=== PATIENT | female | born 1955 | race Caucasian/White ===

== ENCOUNTER 2022-06-15 13:24 | Emergency (ER) | payer MEDICARE ==
[2022-06-15] MEDS ORDERED: BABY ASPIRIN 81 MG CHEW PO ONE (13:31)
[2022-06-15] MEDS ORDERED: Zofran 4 MG/2 ML VIAL IV ONE (13:31)
[2022-06-15] MEDS ORDERED: MORPHINE SULFATE 2 MG INJ IV ONE (13:31)
--- NOTE | 2022-06-15 13:31 | ERPHSYRPT ---
- History of Present Illness Time Seen by Provider: 06/15/22 13:31 Historian: patient, family Exam Limitations: no limitations Physician History: This is a 67-year-old obese white female is never been seen/evaluated in our emergency department in the past and presents with right-sided chest pain that is sharp and nonradiating per her report. Patient's provided us with additional history which the patient confirms that her first episode of pain started Friday after ingesting a sandwich. Each day thereafter her symptoms seem to worsen after eating and therefore in the last couple of days she has not been eating as much. She has been taking in some oral liquids. However, this morning the pain became more severe and was no longer intermittent but constant sharp pain on the right side. She was also nauseated but did not have any vomiting. She still has her gallbladder in place. She has never been diagnosed with any coronary artery disease. She is not on any anticoagulation therapy. She states that she is a little short of breath because there is pain when she takes a deep breath. She has not had a fever. She has not had a cough. She has not had any diarrhea. Patient is relatively new to the area having moved here 6 to 8 months ago from [place] and has not been seen by a local physician. However, she has an appointment to see Dr. Merchant on 06/17/2022 for her initial appointment. Patient has a history of hypertension and hyperch olesterolemia. Timing/Duration: day(s) (4) Activities at Onset: none Quality: burning, sharpness Location: other (Right lower chest and right upper quadrant) Severity of Pain-Max: moderate Severity of Pain-Current: moderate Modifying Factors: Improves With: nothing Associated Symptoms: abdominal pain (Right upper quadrant), shortness of breath (With a deep breath), hurts to breathe Prior Chest Pain/Cardiac Workup: no prior chest pain, no prior cardiac workup Nitro Today/Relief: no nitro taken today Aspirin Treatment Today: no aspirin today Allergies/Adverse Reactions: No Known Drug Allergies Allergy (Unverified 06/15/22 13:26) Travel Risk - International Travel Have you traveled outside of the country in past 3 weeks: No - Coronavirus Screening Are you exhibiting any of the following symptoms?: No Close contact with a COVID-19 positive Pt in past 14-21 Days: No - Review of Systems Constitutional: No Symptoms Eyes: No Symptoms Ears, Nose, & Throat: No Symptoms Respiratory: No Symptoms Cardiac: No Symptoms Abdominal/Gastrointestinal: Abdominal Pain, Appetite Changes, No Nausea, No Vomi ting, No Diarrhea Genitourinary Symptoms: No Symptoms Musculoskeletal: No Symptoms Skin: No Symptoms Neurological: No Symptoms Psychological: No Symptoms Endocrine: No Symptoms Hematologic/Lymphatic: No Symptoms Immunological/Allergic: No Symptoms All Other Systems: Reviewed and Negative - Past Medical History Pertinent Past Medical History: Yes - Past Surgical History Past Surgical History: Yes - Nursing Vital Signs Nursing Vital Signs: Initial Vital Signs Temperature 96.3 F 06/15/22 13:27 Pulse Rate 106 H 06/15/22 13:27 Respiratory Rate 20 06/15/22 13:27 Blood Pressure 119/60 06/15/22 13:27 Pain Scale Pain Intensity 0 - Physical Exam General Appearance: mild distress, alert, anxiety, obese Eye Exam: PERRL/EOMI, eyes nml inspection Ears, Nose, Throat Exam: normal ENT inspection, moist mucous membranes Neck Exam: normal inspection, non-tender, supple, full range of motion Respiratory Exam: normal breath sounds, lungs clear, airway intact, No chest tenderness, No respiratory distress Cardiovascular Exam: normal heart sounds, normal peripheral pulses, tachycardia Gastrointestinal/Abdomen Exam: soft, normal bowel sounds, tenderness, guarding (Right upper quadrant to palpation) Pelvic Exam: not done Rectal Exam: not done Back Exam: normal inspection, normal range of motion, No CVA tenderness, No vertebral tenderness Extremity Exam: normal inspection, normal range of motion, pelvis stable Neurologic Exam: alert, oriented x 3, cooperative, head of human resources II-XII nml as tested, normal mood/affect, nml cerebellar function, nml station & gait, sensation nml Skin Exam: normal color, warm, dry Lymphatic Exam: No adenopathy SpO2 Interpretation: normal SpO2: 99 O2 Delivery: Room Air - Course Nursing assessment & vital signs reviewed: Yes EKG Interpreted by Me: RATE (103), Sinus Tach, NORMAL AXIS, Right Bundle Branch Block, Other (Borderline prolonged NH interval. Difficult to assess this twelve-lead EKG since the patient is very anxious shaking and nervous. I am not necessarily appreciating an acute ischemic issue at this time. No prior twelve- lead EKGs available. We will provide our work-up and repeat twelve-lead EKG.) Ordered Tests: Active Orders 24 hr Category Date Time Status EKG-ER Only STAT Care 06/15/22 13:31 Completed Quintero [Catheter-Kincaid Quintero] STAT Care 06/15/22 14:41 Completed IV Insertion STAT Care 06/15/22 13:31 Completed Pulse Oximetry (ED) STAT Care 06/15/22 13:31 Completed ABDOMEN AND PELVIS W/0 CONTRAS [CT] Stat Exams 06/15/22 13:46 Completed CHEST 1 VIEW (PORTABLE) Stat Exams 06/15/22 13:31 Completed ABG [ARTERIAL BLOOD GASES] Stat Lab 06/15/22 14:20 Completed ABG [ARTERIAL BLOOD GASES] Stat Lab 06/15/22 16:33 Completed AMYLASE Stat Lab 06/15/22 13:40 Completed BMP Stat Lab 06/15/22 17:03 Completed CBC W DIFF Stat Lab 06/15/22 13:40 Completed CMP Stat Lab 06/15/22 13:40 Completed CULTURE,URINE Stat Lab 06/15/22 15:12 Received D-DIMER QUANTITATIVE Stat Lab 06/15/22 13:40 Completed LIPASE Stat Lab 06/15/22 13:40 Completed Lactic Acid Stat Lab 06/15/22 14:20 Completed NT PRO BNPII Stat Lab 06/15/22 13:40 Completed PROTIME WITH INR Stat Lab 06/15/22 13:40 Completed TROPONIN Q4H Lab 06/15/22 13:40 Completed TROPONIN Q4H Lab 06/15/22 17:03 Completed UA W/RFX UR CULTURE Stat Lab 06/15/22 15:12 Completed Medication Summary Discontinued Medications Generic Name Dose Route Start Last Admin Trade Name Freq PRN Reason Stop Dose Admin Aspirin 324 mg 06/15/22 13:31 06/15/22 13:35 Aspirin 81 Mg Tab.Chew PO 06/15/22 13:32 324 mg STAT ONE Administration Aspirin Confirm 06/15/22 13:34 Aspirin 81 Mg Tab.Chew Administered 06/15/22 13:35 Dose 324 mg .ROUTE .STK-MED ONE Enoxaparin Sodium 90 mg 06/15/22 14:31 06/15/22 14:39 Enoxaparin Sodium 120 Mg/0.8 Ml Syringe SQ 06/15/22 14:32 90 mg STAT STA Administration Enoxaparin Sodium Confirm 06/15/22 14:38 Enoxaparin Sodium 120 Mg/0.8 Ml Syringe Administered 06/15/22 14:39 Dose 120 mg SQ .STK-MED ONE Sodium Chloride 1,000 mls @ 100 mls/hr 06/15/22 13:45 06/15/22 13:48 Sodium Chloride 0.9% 1000 Ml IV 07/15/22 13:44 100 mls/hr .Q10H CHRISS Administration Meropenem 1 gm/ Sodium 100 mls @ 200 mls/hr 06/15/22 14:42 06/15/22 15:00 Chloride IV 06/15/22 15:11 200 mls/hr STAT ONE Administration Sodium Chloride Confirm 06/15/22 14:58 Sodium Chloride 100ml Mini-Bag Plus Administered 06/15/22 14:59 Dose 100 mls @ ud IV .STK-MED ONE Sodium Chloride 1,000 mls @ 250 mls/hr 06/15/22 15:45 06/15/22 19:56 Sodium Chloride 0.9% 1000 Ml IV 07/15/22 15:44 100 mls/hr .Q4H CHRISS Administration Norepinephrine/Dextrose Confirm 06/15/22 17:15 Norepinephrine 8 Mg/250 Ml-D5w Administered 06/15/22 17:16 Dose 8 mg in 250 mls @ ud IV .STK-MED ONE Sodium Bicarbonate 100 meq/ 1,100 mls @ 50 mls/hr 06/15/22 17:30 06/15/22 18:15 Dextrose IV 07/15/22 17:29 50 ml/hr .Q22H CHRISS 50 mls/hr Administration Norepinephrine/Dextrose 8 mg in 250 mls @ 15 mls/hr 06/15/22 17:29 06/15/22 20:03 Norepinephrine 8 Mg/250 Ml-D5w IV 07/15/22 17:28 8 mcg/min .[id number] PRN 15 mls/hr HYPOTENSION Titration Protocol 8 MCG/MIN Dextrose Confirm 06/15/22 17:45 Dextrose 5%/Water Iv Soln. 1000 Ml Administered 06/15/22 17:46 Dose 1,000 mls @ ud IV .STK-MED ONE Meropenem Confirm 06/15/22 14:58 Meropenem 1 Gm Vial Administered 06/15/22 14:59 Dose 1 gm IV .STK-MED ONE Morphine Sulfate 2 mg 06/15/22 13:31 06/15/22 13:36 Morphine Sulfate 2 Mg/Ml Inj IV 06/15/22 13:32 2 mg STAT ONE Administration Morphine Sulfate Confirm 06/15/22 13:34 Morphine Sulfate 2 Mg/Ml Inj Administered 06/15/22 13:35 Dose 2 mg .ROUTE .STK-MED ONE Ondansetron HCl 4 mg 06/15/22 13:31 06/15/22 13:35 Ondansetron Hcl 4 Mg/2 Ml Vial IV 06/15/22 13:32 4 mg STAT ONE Administration Ondansetron HCl Confirm 06/15/22 13:34 Ondansetron Hcl 4 Mg/2 Ml Vial Administered 06/15/22 13:35 Dose 4 mg .ROUTE .STK-MED ONE Sodium Bicarbonate 50 meq 06/15/22 15:23 06/15/22 15:37 Sodium Bicarbonate 1 Meq/Ml 50ml Syringe IV 06/15/22 15:24 50 meq STAT ONE Administration Sodium Bicarbonate Confirm 06/15/22 15:35 Sodium Bicarbonate 1 Meq/Ml 50ml Syringe Administered 06/15/22 15:36 Dose 50 meq IV .STK-MED ONE Sodium Bicarbonate Confirm 06/15/22 17:45 Sodium Bicarbonate 1 Meq/Ml 50ml Syringe Administered 06/15/22 17:46 Dose 100 meq IV .STK-MED ONE Lab/Rad Data: Laboratory Result Diagrams 06/15/22 13:40 06/15/22 17:03 Laboratory Results 06/15/22 06/15/22 06/15/22 Range/Units 17:03 17:03 17:00 WBC (4.0-10.5) x10^3/uL RBC (4.1-5.4) x10^6/uL Hgb (12.0-16.0) g/dL Hct (35-47) % MCV (78-100) fL MCH (26-32) pg MCHC (32-36) g/dL RDW (11.5-14.0) % Plt Count (150-450) x10^3/uL MPV (7.5-11.0) fL Gran % (36.0-66.0) % Immature Gran % (Auto) (0.00-0.4) % Nucleat RBC Rel Count (0.00-0.1) % Eos # (Auto) (0-0.5) x10^3/uL Immature Gran # (Auto) (0.00-0.03) x10^3u/L Absolute Lymphs (auto) (1.0-4.6) x10^3/uL Absolute Monos (auto) (0.0-1.3) x10^3/uL Absolute Nucleated RBC (0.00-0.01) x10^3u/L Lymphocytes % (24.0-44.0) % Monocytes % (0.0-12.0) % Eosinophils % (0.00-5.0) % Basophils % (0.0-0.4) % Absolute Granulocytes (1.4-6.9) x10^3/uL Basophils # (0-0.4) x10^3/uL PT (9.4-12.5) SECONDS INR (0.8-3.0) D-Dimer (0.0-0.50) mg/L Puncture Site pCO2 (35-45) mmHg pO2 (75-100) mmHg Base Excess (-2.0-2.0) O2 Saturation (94-100) g/dF ABG pH (7.35-7.45) ABG HCO3 (22-28) ABG O2 Sat (Measured) (95-100) % Candido Test A-a Gradient a/A Ratio Hemoglobin Carboxyhemoglobin (0.0-6.9) % THgb Methemoglobin (1.4-1.5) % Temperature C POC O2 Flow Rate % Sodium 137 (137-145) mmol/L Potassium 3.8 (3.5-5.1) mmol/L Chloride 100 (98-107) mmol/L Carbon Dioxide 13 L* (22-30) mmol/L Anion Gap 27.8 H (5-15) MEQ/L BUN 87 H (7-17) mg/dL Creatinine 10.33 H (0.52-1.04) mg/dL Estimated GFR 3.9 ML/MIN Glucose 127 H (74-106) mg/dL Lactic Acid (0.4-2.0) Calcium 8.4 (8.4-10.2) mg/dL Total Bilirubin (0.2-1.3) mg/dL AST (14-36) U/L ALT (0-35) U/L Alkaline Phosphatase (38-126) U/L Troponin I 0.070 H* (0.000-0.034) ng/mL NT-Pro-B Natriuret Pep (<300) pg/mL Serum Total Protein (6.3-8.2) g/dL Albumin (3.5-5.0) g/dL Amylase (30-110) U/L Lipase (23-300) U/L Urine Color (Yellow) Urine Appearance (Clear) Urine pH (4.6-8.0) Ur Specific Mutual (1.005-1.030) Urine Protein (Negative) Urine Glucose (UA) (Negative) mg/dL Urine Ketones (Negative) Urine Blood (Negative) Urine Nitrite (Negative) Urine Bilirubin (Negative) Urine Urobilinogen (0.2) mg/dL Ur Leukocyte Esterase (Negative) U Hyaline Cast (Auto) (0-2) /LPF Urine Microscopic RBC (0-5) /HPF Urine Microscopic WBC (0-5) /HPF Ur Epithelial Cells (None Seen) /HPF Urine Bacteria (None Seen) /HPF Urine Culture Reflexed (NO) Influenza Type A Ag NEGATIVE (NEGATIVE) Influenza Type B Ag NEGATIVE (NEGATIVE) RSV (PCR) NEGATIVE (Negative) SARS-CoV-2 (PCR) NEGATIVE (NEGATIVE) 06/15/22 06/15/22 06/15/22 Range/Units 16:33 15:12 14:20 WBC (4.0-10.5) x10^3/uL RBC (4.1-5.4) x10^6/uL Hgb (12.0-16.0) g/dL Hct (35-47) % MCV (78-100) fL MCH (26-32) pg MCHC (32-36) g/dL RDW (11.5-14.0) % Plt Count (150-450) x10^3/uL MPV (7.5-11.0) fL Gran % (36.0-66.0) % Immature Gran % (Auto) (0.00-0.4) % Nucleat RBC Rel Count (0.00-0.1) % Eos # (Auto) (0-0.5) x10^3/uL Immature Gran # (Auto) (0.00-0.03) x10^3u/L Absolute Lymphs (auto) (1.0-4.6) x10^3/uL Absolute Monos (auto) (0.0-1.3) x10^3/uL Absolute Nucleated RBC (0.00-0.01) x10^3u/L Lymphocytes % (24.0-44.0) % Monocytes % (0.0-12.0) % Eosinophils % (0.00-5.0) % Basophils % (0.0-0.4) % Absolute Granulocytes (1.4-6.9) x10^3/uL Basophils # (0-0.4) x10^3/uL PT (9.4-12.5) SECONDS INR (0.8-3.0) D-Dimer (0.0-0.50) mg/L Puncture Site LEFT BRACHIAL LEFT RADIAL pCO2 24 L 16 L* (35-45) mmHg pO2 88 132 H* (75-100) mmHg Base Excess -12.1 L -16.7 L (-2.0-2.0) O2 Saturation 96.1 97.0 (94-100) g/dF ABG pH 7.31 L 7.27 L (7.35-7.45) ABG HCO3 12.1 L* 7.3 L* (22-28) ABG O2 Sat (Measured) 97.7 98.9 (95-100) % Candido Test YES YES A-a Gradient 82 48 a/A Ratio 0.52 0.73 Hemoglobin 14.7 15.6 Carboxyhemoglobin 0.8 0.9 (0.0-6.9) % THgb Methemoglobin 0.8 L 0.9 L (1.4-1.5) % Temperature 37.0 37.0 C POC O2 Flow Rate 28 28 % Sodium (137-145) mmol/L Potassium 3.6 3.5 (3.5-5.1) mmol/L Chloride (98-107) mmol/L Carbon Dioxide (22-30) mmol/L Anion Gap (5-15) MEQ/L BUN (7-17) mg/dL Creatinine (0.52-1.04) mg/dL Estimated GFR ML/MIN Glucose (74-106) mg/dL Lactic Acid 1.9 (0.4-2.0) Calcium (8.4-10.2) mg/dL Total Bilirubin (0.2-1.3) mg/dL AST (14-36) U/L ALT (0-35) U/L Alkaline Phosphatase (38-126) U/L Troponin I (0.000-0.034) ng/mL NT-Pro-B Natriuret Pep (<300) pg/mL Serum Total Protein (6.3-8.2) g/dL Albumin (3.5-5.0) g/dL Amylase (30-110) U/L Lipase (23-300) U/L Urine Color Yellow (Yellow) Urine Appearance Cloudy A (Clear) Urine pH 5.0 (4.6-8.0) Ur Specific Mutual 1.020 (1.005-1.030) Urine Protein 100 A (Negative) Urine Glucose (UA) Negative (Negative) mg/dL Urine Ketones Trace A (Negative) Urine Blood NHT (Negative) Urine Nitrite Negative (Negative) Urine Bilirubin Negative (Negative) Urine Urobilinogen 0.2 (0.2) mg/dL Ur Leukocyte Esterase Small A (Negative) U Hyaline Cast (Auto) >50 A (0-2) /LPF Urine Microscopic RBC 3-5 (0-5) /HPF Urine Microscopic WBC 21-50 A (0-5) /HPF Ur Epithelial Cells Many A (None Seen) /HPF Urine Bacteria None Seen (None Seen) /HPF Urine Culture Reflexed YES (NO) Influenza Type A Ag (NEGATIVE) Influenza Type B Ag (NEGATIVE) RSV (PCR) (Negative) SARS-CoV-2 (PCR) (NEGATIVE) 06/15/22 06/15/22 06/15/22 Range/Units 13:40 13:40 13:40 WBC (4.0-10.5) x10^3/uL RBC (4.1-5.4) x10^6/uL Hgb (12.0-16.0) g/dL Hct (35-47) % MCV (78-100) fL MCH (26-32) pg MCHC (32-36) g/dL RDW (11.5-14.0) % Plt Count (150-450) x10^3/uL MPV (7.5-11.0) fL Gran % (36.0-66.0) % Immature Gran % (Auto) (0.00-0.4) % Nucleat RBC Rel Count (0.00-0.1) % Eos # (Auto) (0-0.5) x10^3/uL Immature Gran # (Auto) (0.00-0.03) x10^3u/L Absolute Lymphs (auto) (1.0-4.6) x10^3/uL Absolute Monos (auto) (0.0-1.3) x10^3/uL Absolute Nucleated RBC (0.00-0.01) x10^3u/L Lymphocytes % (24.0-44.0) % Monocytes % (0.0-12.0) % Eosinophils % (0.00-5.0) % Basophils % (0.0-0.4) % Absolute Granulocytes (1.4-6.9) x10^3/uL Basophils # (0-0.4) x10^3/uL PT 10.3 (9.4-12.5) SECONDS INR 0.94 (0.8-3.0) D-Dimer 2.38 H* (0.0-0.50) mg/L Puncture Site pCO2 (35-45) mmHg pO2 (75-100) mmHg Base Excess (-2.0-2.0) O2 Saturation (94-100) g/dF ABG pH (7.35-7.45) ABG HCO3 (22-28) ABG O2 Sat (Measured) (95-100) % Candido Test A-a Gradient a/A Ratio Hemoglobin Carboxyhemoglobin (0.0-6.9) % THgb Methemoglobin (1.4-1.5) % Temperature C POC O2 Flow Rate % Sodium 135 L (137-145) mmol/L Potassium 4.0 (3.5-5.1) mmol/L Chloride 98 (98-107) mmol/L Carbon Dioxide 8 L* (22-30) mmol/L Anion Gap 32.9 H (5-15) MEQ/L BUN 88 H (7-17) mg/dL Creatinine 10.81 H (0.52-1.04) mg/dL Estimated GFR 3.7 ML/MIN Glucose 154 H (74-106) mg/dL Lactic Acid (0.4-2.0) Calcium 9.5 (8.4-10.2) mg/dL Total Bilirubin 0.70 (0.2-1.3) mg/dL AST 22 (14-36) U/L ALT 19 (0-35) U/L Alkaline Phosphatase 98 (38-126) U/L Troponin I 0.069 H* (0.000-0.034) ng/mL NT-Pro-B Natriuret Pep 3690 (<300) pg/mL Serum Total Protein 8.0 (6.3-8.2) g/dL Albumin 5.0 (3.5-5.0) g/dL Amylase 180 H (30-110) U/L Lipase 652 H (23-300) U/L Urine Color (Yellow) Urine Appearance (Clear) Urine pH (4.6-8.0) Ur Specific Mutual (1.005-1.030) Urine Protein (Negative) Urine Glucose (UA) (Negative) mg/dL Urine Ketones (Negative) Urine Blood (Negative) Urine Nitrite (Negative) Urine Bilirubin (Negative) Urine Urobilinogen (0.2) mg/dL Ur Leukocyte Esterase (Negative) U Hyaline Cast (Auto) (0-2) /LPF Urine Microscopic RBC (0-5) /HPF Urine Microscopic WBC (0-5) /HPF Ur Epithelial Cells (None Seen) /HPF Urine Bacteria (None Seen) /HPF Urine Culture Reflexed (NO) Influenza Type A Ag (NEGATIVE) Influenza Type B Ag (NEGATIVE) RSV (PCR) (Negative) SARS-CoV-2 (PCR) (NEGATIVE) 06/15/22 Range/Units 13:40 WBC 13.5 H (4.0-10.5) x10^3/uL RBC 5.11 (4.1-5.4) x10^6/uL Hgb 16.0 (12.0-16.0) g/dL Hct 47.8 H (35-47) % MCV 93.5 (78-100) fL MCH 31.3 (26-32) pg MCHC 33.5 (32-36) g/dL RDW 13.0 (11.5-14.0) % Plt Count 435 (150-450) x10^3/uL MPV 9.3 (7.5-11.0) fL Gran % 67.5 H (36.0-66.0) % Immature Gran % (Auto) 0.4 (0.00-0.4) % Nucleat RBC Rel Count 0.0 (0.00-0.1) % Eos # (Auto) 0.01 (0-0.5) x10^3/uL Immature Gran # (Auto) 0.05 H (0.00-0.03) x10^3u/L Absolute Lymphs (auto) 3.14 (1.0-4.6) x10^3/uL Absolute Monos (auto) 1.12 (0.0-1.3) x10^3/uL Absolute Nucleated RBC 0.00 (0.00-0.01) x10^3u/L Lymphocytes % 23.3 L (24.0-44.0) % Monocytes % 8.3 (0.0-12.0) % Eosinophils % 0.1 (0.00-5.0) % Basophils % 0.4 (0.0-0.4) % Absolute Granulocytes 9.11 H (1.4-6.9) x10^3/uL Basophils # 0.05 (0-0.4) x10^3/uL PT (9.4-12.5) SECONDS INR (0.8-3.0) D-Dimer (0.0-0.50) mg/L Puncture Site pCO2 (35-45) mmHg pO2 (75-100) mmHg Base Excess (-2.0-2.0) O2 Saturation (94-100) g/dF ABG pH (7.35-7.45) ABG HCO3 (22-28) ABG O2 Sat (Measured) (95-100) % Candido Test A-a Gradient a/A Ratio Hemoglobin Carboxyhemoglobin (0.0-6.9) % THgb Methemoglobin (1.4-1.5) % Temperature C POC O2 Flow Rate % Sodium (137-145) mmol/L Potassium (3.5-5.1) mmol/L Chloride (98-107) mmol/L Carbon Dioxide (22-30) mmol/L Anion Gap (5-15) MEQ/L BUN (7-17) mg/dL Creatinine (0.52-1.04) mg/dL Estimated GFR ML/MIN Glucose (74-106) mg/dL Lactic Acid (0.4-2.0) Calcium (8.4-10.2) mg/dL Total Bilirubin (0.2-1.3) mg/dL AST (14-36) U/L ALT (0-35) U/L Alkaline Phosphatase (38-126) U/L Troponin I (0.000-0.034) ng/mL NT-Pro-B Natriuret Pep (<300) pg/mL Serum Total Protein (6.3-8.2) g/dL Albumin (3.5-5.0) g/dL Amylase (30-110) U/L Lipase (23-300) U/L Urine Color (Yellow) Urine Appearance (Clear) Urine pH (4.6-8.0) Ur Specific Mutual (1.005-1.030) Urine Protein (Negative) Urine Glucose (UA) (Negative) mg/dL Urine Ketones (Negative) Urine Blood (Negative) Urine Nitrite (Negative) Urine Bilirubin (Negative) Urine Urobilinogen (0.2) mg/dL Ur Leukocyte Esterase (Negative) U Hyaline Cast (Auto) (0-2) /LPF Urine Microscopic RBC (0-5) /HPF Urine Microscopic WBC (0-5) /HPF Ur Epithelial Cells (None Seen) /HPF Urine Bacteria (None Seen) /HPF Urine Culture Reflexed (NO) Influenza Type A Ag (NEGATIVE) Influenza Type B Ag (NEGATIVE) RSV (PCR) (Negative) SARS-CoV-2 (PCR) (NEGATIVE) - Progress Progress: improved, re-examined Air Movement: good Progress Note: 06/15/22 13:56 Chest x-ray was interpreted by me. There are no acute cardiopulmonary abnormalities. 06/15/22 15:33 This patient has medical issues that are of high complexity. This is based on the presentation of the patient into the hospital, her primary complaint, her history of present illness and physical findings on examination. In addition, it is also based on her vital signs and the complexity of the work-up. The above prompted me to place 2 IV lines, provide the patient with intravenous fluids, intravenous pain medicine, intravenous antiemetics, perform a twelve- lead EKG, normal blood work, place a Quintero catheter and obtain urinalysis, order a CAT scan of the abdomen and pelvis without contrast. Patient had multiple abnormalities on her work-up results including leukocytosis, renal failure, elevated amylase and lipase, elevated troponin elevated D-dimer. We are unable to perform a CTA of the chest to evaluate for pulmonary embolus because of her poor renal function and the use of intravenous contrast dye, elevated troponin level. Patient's initial systolic blood pressures in the 110s but after 2 mg of intravenous morphine, patient's blood pressure now has been in the high 80s to mid 90 range. Patient's oxygenation level is 99 to 100% on 2 L nasal cannula. CAT scan of the abdomen and pelvis was performed without contrast and there is no acute intra-abdominal or intrapelvic findings. There is a small hiatal herni a present. The chest x-ray was interpreted by me and there are no acute abnormalities. The patient needs to be at different facility with a higher level of care to include evaluation by cardiology, pulmonology and nephrology and possible renal dialysis. We contacted [facility] in [facility] and they are closed to any transfer level, [facility] states they are 24 individuals boarding in the emergency department and it be at least 48 hours before any bed opens up and becomes available. [facility] was also contacted and we are awaiting a callback from them. We have also contacted [facility] and we are awaiting return phone call from them as well. The patient was given meropenem intravenously, subcutaneous Lovenox and a second liter of normal saline infusion. We may need to place the patient on low-dose Levophed if her mean arterial pressure is not maintained above 60 mmHg 06/15/22 16:02 Received a phone call from [facility] and discussed this patient with [address] Lorenzo the grocery shopper, Dr. Sebastian the hospitalist and Dr. Pham stonework supervisor. I reviewed the entire work-up and the results and the current vital signs of the patient and they declined the acceptance and transfer. 06/15/22 16:26 Received a follow-up call from [facility] nephrology Dr. Wills in [facility][1]. I reviewed the results of the work-up as well as the patient's history physical exam findings. He states that he is concerned about an infarcted kidney. He states that there are no urologist in [place]. He feels that the patient needs a urologic evaluation prior to the potential of doing a session of hemodialysis. He declines acceptance and transfer. 06/15/22 16:57 I reexamined the patient. Patient states that she is feeling much better and clinically she looks better. We are repeating the BMP and awaiting callback from [facility]. 06/15/22 17:18 Spoke with , grocery shopper out of [facility] in [place]. I reviewed the above work-up results and history physical exam on this patient with him. They do accept this patient in transfer. However, they are unsure when a monitored bed will be available. In the meantime, the grocery shopper recommends placing the patient on a sodium bicarb drip, check BMP and BNP every 6 hours and follow the patient clinically. He does not feel that the patient requires emergent dialysis at this time. If the patient is becoming fluid overloaded clinically or renal function and electrolyte values are becoming increasingly worse rather than improved as they are at this point, then transfer the patient emergency room to emergency room. 06/15/22 18:23 Clinically, the patient states she is feeling better. With the current treatment which includes low-dose Levophed, normal saline and sodium bicarb infusion, her systolic blood pressure now is 115. Her heart rate is in the 80s. Blood Culture(s) Obtained: Yes Antibiotics given: Yes Counseled pt/family regarding: lab results, diagnosis, rad results Medical Desision Making - Independent Historian Additional History obtained from: Spouse - Discussion of managment Reviewed:: Test results, Need for additional workup Agreed on:: Treatment plan, decision to admit (Need to transfer to higher level of care that has pulmonology, cardiology and nephrology) - Diagnostic Testing Diagnostic test were ordered, analyzed, and reviewed by me: Yes Radiological Interpretation: Interpreted by me (X-ray was interpreted by me), Reviewed by me (CT scan of the abdomen and pelvis report), Teleradiologist Report - Risk of complications The pt has a high risk of morbidity or mortality based on: Decision regarding hospitilization or escalation of hosp level of care - Departure Departure Disposition: Transfer Clinical Impression: Renal failure, Elevated troponin, Elevated d-dimer, Hypotension, Leukocytosis, Sepsis, Pancreatitis, UTI (urinary tract infection), Acidosis Condition: Serious Critical Care Time: Yes Critical Care Time(excluding separately billable procedures): Critical 30-74 mins (65) Referrals: RODRÍGUEZ MERCHANT MD [Primary Care Provider] - Follow up/PCP as directed
[2022-06-15] MEDS ORDERED: BABY ASPIRIN 81 MG CHEW ONE (13:34)
[2022-06-15] MEDS ORDERED: Zofran 4 MG/2 ML VIAL ONE (13:34)
[2022-06-15] MEDS ORDERED: MORPHINE SULFATE 2 MG INJ ONE (13:34)
[2022-06-15] MEDS ORDERED: Sodium Chloride 0.9% 1000 ML 1,000 ML IV SCH (13:45)
[2022-06-15] MEDS ORDERED: Sodium Chloride 0.9% 1000 ML 1,000 ML ONE ×3 (13:47→19:54)
[2022-06-15 13:50] LABS: Absolute Neutrophil Ct (ANC) 9.11 x10^3/uL (1.4-6.9); BASOPHIL % 0.4 % (0.0-0.4); Basophil (Absolute #) 0.05 x10^3/uL (0-0.4); Eosinophil % 0.1 % (0.00-5.0); Eosinophil (Absolute #) 0.01 x10^3/uL (0-0.5); Hematocrit 47.8 % (35-47); IMMATURE GRAN # 0.05 x10^3u/L (0.00-0.03); IMMATURE GRAN % 0.4 % (0.00-0.4); Lymphocyte (Absolute #) 3.14 x10^3/uL (1.0-4.6); Lymphocytes % 23.3 % (24.0-44.0); Mean Cell Volume 93.5 fL (78-100); Mean Corpuscular Hemoglobin 31.3 pg (26-32); Mean Corpuscular Hgb Concent. 33.5 g/dL (32-36); Mean Platelet Volume 9.3 fL (7.5-11.0); Monocyte (Absolute #) 1.12 x10^3/uL (0.0-1.3); Monocytes % 8.3 % (0.0-12.0); Neutrophil % 67.5 % (36.0-66.0); Platelet Count 435 x10^3/uL (150-450); Red Blood Count 5.11 x10^6/uL (4.1-5.4); White Blood Count 13.5 x10^3/uL (4.0-10.5)
[2022-06-15 14:17] LABS: INR 0.94 (0.8-3.0); PROTIME 10.3 SECONDS (9.4-12.5)
[2022-06-15 14:20] LABS: ANION GAP 32.9 MEQ/L (5-15); BILIRUBIN,TOTAL 0.7 mg/dL (0.2-1.3); Calcium 9.5 mg/dL (8.4-10.2); Creatinine 1 10.81 mg/dL (0.52-1.04); EST GLOMERULAR FILTRATION RATE 3.7 ML/MIN
[2022-06-15 14:23] LABS: D-DIMER QUANTITATIVE 2.38 mg/L (0.0-0.50)
[2022-06-15 14:28] LABS: A-aADO2 48; ABG HEMOGLOBIN 15.6; ABG POTASSIUM 3.5 (3.5-5.1); ABG SITE LEFT RADIAL; ALLEN TEST OK? YES; ARTERIAL BLD GAS O2 SATURATION 98.9 % (95-100); ARTERIAL BLOOD GAS BASE EXCESS -16.7 (-2.0-2.0); ARTERIAL BLOOD GAS FIO2 28 %; ARTERIAL BLOOD GAS PCO2 16 mmHg (35-45); ARTERIAL BLOOD GAS PO2 132 mmHg (75-100); ARTERIAL BLOOD GAS pH 7.27 (7.35-7.45); CARBOXYHEMOGLOBIN 0.9 % THgb (0.0-6.9); HCO3- 7.3 (22-28); Lactic Acid 1.9 (0.4-2.0); Methhemoglobin 0.9 % (1.4-1.5); paO2 pAO1 0.73
[2022-06-15] MEDS ORDERED: ENOXAPARIN SODIUM SQ STA (14:31)
[2022-06-15] MEDS ORDERED: ENOXAPARIN SODIUM SQ ONE (14:38)
[2022-06-15] MEDS ORDERED: Merrem 1 GM in Sodium Chloride 100ML MINI-BAG PLUS 100 ML IV ONE (14:42)
[2022-06-15] MEDS ORDERED: Merrem IV ONE (14:58)
[2022-06-15] MEDS ORDERED: Sodium Chloride 100ML MINI-BAG PLUS 100 ML IV ONE (14:58)
[2022-06-15] MEDS ORDERED: SODIUM BICARBONATE 50 MEQ/50 ML ABBOJECT IV ONE ×3 (15:23→17:45)
[2022-06-15] MEDS: Sodium Chloride 0.9% 1000 ML 1,000 ML IV SCH ×2 (15:36→19:56)
[2022-06-15 15:38] LABS: Appearance Cloudy (Clear); Bacteria None Seen /HPF (None Seen); Bilirubin Negative (Negative); Blood NHT (Negative); Epithelial Cells Many /HPF (None Seen); Glucose, Urine Negative (Negative); Hyaline Casts >50 /LPF (0-2); Ketones Trace (Negative); Leukocyte Esterase Small (Negative); Nitrite Negative (Negative); Protein,Urine Dip 100 (Negative); Urobilinogen 0.2 mg/dL (0.2); WBC 21-50 /HPF (0-5)
[2022-06-15 15:39] LABS: ADD URINE CULTURE? YES (NO)
[2022-06-15 16:34] LABS: A-aADO2 82; ABG HEMOGLOBIN 14.7; ABG POTASSIUM 3.6 (3.5-5.1); ABG SITE LEFT BRACHIAL; ALLEN TEST OK? YES; ARTERIAL BLD GAS O2 SATURATION 97.7 % (95-100); ARTERIAL BLOOD GAS BASE EXCESS -12.1 (-2.0-2.0); ARTERIAL BLOOD GAS FIO2 28 %; ARTERIAL BLOOD GAS PCO2 24 mmHg (35-45); ARTERIAL BLOOD GAS PO2 88 mmHg (75-100); ARTERIAL BLOOD GAS pH 7.31 (7.35-7.45); CARBOXYHEMOGLOBIN 0.8 % THgb (0.0-6.9); HCO3- 12.1 (22-28); HGB O2 SAT 96.1 g/dF (94-100); Methhemoglobin 0.8 % (1.4-1.5); paO2 pAO1 0.52
[2022-06-15] MEDS ORDERED: NOREPINEPHRINE 8 MG/250 ML-D5W 8 MG/250 ML PLAST..BAG IV ONE (17:15)
[2022-06-15 17:19] LABS: ANION GAP 27.8 MEQ/L (5-15); Calcium 8.4 mg/dL (8.4-10.2); Creatinine 1 10.33 mg/dL (0.52-1.04); EST GLOMERULAR FILTRATION RATE 3.9 ML/MIN; Potassium 3.8 mmol/L (3.5-5.1)
[2022-06-15] MEDS ORDERED: NOREPINEPHRINE 8 MG/250 ML-D5W 8 MG/250 ML PLAST..BAG IV PRN (17:29)
[2022-06-15] MEDS ORDERED: Sodium Bicarbonate 50 MEQ/50 ML VIAL*** 100 MEQ in Dextrose 5%/Water IV Soln. 1000 ML 1... IV SCH (17:30)
[2022-06-15] MEDS ORDERED: Dextrose 5%/Water IV Soln. 1000 ML 1,000 ML IV ONE (17:45)
[2022-06-15 17:49] LABS: INFLUENZA A NEGATIVE (NEGATIVE); INFLUENZA B NEGATIVE (NEGATIVE); RESPIRATORY SYNCTIAL VIRUS NEGATIVE (Negative); SARS-CoV-2 Xpert Express NEGATIVE (NEGATIVE)
--- NOTE | 2022-06-15 20:21 | XRAY ---
Indication: Epigastric pain. Multiple contiguous axial images obtained through the abdomen and pelvis without contrast. Comparison: None Lung bases demonstrates minimal dependent atelectasis. Heart not enlarged. Small hiatal hernia with partial intrathoracic stomach. Noncontrasted stomach and bowel loops appear nonobstructed with normal appendix and minimal sigmoid diverticulosis. Floor pelvis demonstrates pessary ring. No free fluid/air. Remaining liver, gallbladder, pancreas, spleen, adrenal glands, kidneys, ureters, bladder, and uterus are unremarkable for noncontrast exam. Minimal aortoiliac calcifications without AAA. Osseous structures intact with osteopenia, mild/moderate multilevel degenerative spondylosis, and minimal 2 mm L5 listhesis. Impression: 1. Small hiatal hernia, minimal sigmoid diverticulosis, minimal arteriosclerotic disease, and chronic bony findings. 2. Remaining CT abdomen/pelvis without contrast exam is negative. Comment: Preliminary interpretation made by [facility]. No critical discrepancy.
--- NOTE | 2022-06-15 20:21 | XRAY ---
Indication: Chest/epigastric pain. Comparison: None Portable chest inflated and clear. Heart not enlarged with tortuous descending aorta. Bony thorax intact with osteopenia and mild degenerative changes. Impression: Nonacute chest with chronic features.
[2022-06-15 22:10] VITALS: BP 92/78; PULSE 101
[2022-06-16 06:55] VITALS: O2SAT 99
== END 2022-06-15 23:05 | disposition short-term general hospital (02) ==
LOC: ED 13:24
DX: A41.9 Sepsis, unspecified organism (principal); N39.0 Urinary tract infection, site not specified; R65.20 Severe sepsis without septic shock; N17.9 Acute kidney failure, unspecified; R77.8 Other specified abnormalities of plasma proteins; R79.1 Abnormal coagulation profile; I95.9 Hypotension, unspecified; D72.829 Elevated white blood cell count, unspecified; K85.90 Acute pancreatitis without necrosis or infection, unspecified; E87.20 Acidosis, unspecified; R07.9 Chest pain, unspecified; R11.0 Nausea; I10 Essential (primary) hypertension; E78.5 Hyperlipidemia, unspecified; Z20.828 Contact with and (suspected) exposure to other viral communicable diseases
CPT/HCPCS: 0241U; 36000; 36415; 36600; 51702; 71045; 74176; 80048; 80053; 81001; 82150; 82375; 82803; 83605; 83690; 83880; 84484; 85025; 85379; 85610; 87086; 93005; 94760; 96360; 96361; 96372; 96374; 96375; 99285; J1650; J2270; J2405; A9270-GY

== ENCOUNTER 2022-12-25 13:58 | Observation (INO) | payer MEDICARE ==
[2022-12-25] MEDS ORDERED: POTASSIUM CHLORIDE 20 mEq IN WATER 100ML 20 MEQ/100 ML BAG IV ONE ×2 (14:09→16:50)
--- NOTE | 2022-12-25 14:29 | ERPHSYRPT ---
- History of Present Illness Time Seen by Provider: 12/25/22 14:05 Source: patient Exam Limitations: no limitations Patient Subjective Stated Complaint: pt states that she got a phone call stating her potassium was critical Triage Nursing Assessment: pt ambulated into the er; pt is axo x3; c/o abdnormal labs; pt states low potassium; clear heart heart tone; strong ojnah radial pulses; clear lung sounds in all lobes; hypertensive; no respiratory distress present; skin PDW Physician History: This is a 67-year-old white female patient of Dr. Merchant, her primary care physician, and Dr. Marie, her linen room houseperson who underwent routine lab test this morning. Her potassium was 2.5. That level was drawn at 944 this morning. Patient was called and told to come to the emergency department for potassium supplementation and monitoring. Patient arrived to the emergency department at 1405. Patient usually takes potassium chloride 20 mill equivalents daily orally. However she did not take her dose today. Patient has a history of obesity, hypertension and renal disease. Patient has no symptoms. She denies chest pain. Patient states she is tired always but there is no worsening of her symptoms. She denies chest pain. She denies shortness of breath. She denies abdominal pain. She has had no nausea vomiting or diarrhea. She denies any urinary symptoms. Patient is not undergoing dialysis at this time. Timing/Duration: today Severity: mild Associated Symptoms: denies symptoms Allergies/Adverse Reactions: No Known Drug Allergies Allergy (Unverified 06/15/22 13:26) Home Medications: Alendronate Sodium 70 mg [Fosamax 70 MG] 70 mg PO Q7D@0600 12/25/22 [History] Allopurinol 100 mg [Zyloprim 100 mg] 100 mg PO BID 12/25/22 [History] Amiloride HCl 5 mg PO DAILY 12/25/22 [History] Aspirin EC 81 mg [Ecotrin 81 mg] 81 mg PO DAILY 12/25/22 [History] Atorvastatin Calcium 40 mg PO DAILY 12/25/22 [History] Calcium Carbonate [Calcium] 500 mg PO DAILY 12/25/22 [History] Cilostazol 100 mg [Pletal 100 MG] 100 mg PO BID 12/25/22 [History] [place]-3 Fatty Acids/Fish Oil [Fish Oil 1,000 mg Capsule] 1,000 mg PO DAILY 12/25/22 [History] Omeprazole 40 mg PO DAILY 12/25/22 [History] Potassium Chloride 20 meq PO DAILY 12/25/22 [History] Hx Tetanus, Diphtheria Vaccination/Date Given: No Hx Influenza Vaccination/Date Given: No Hx Pneumococcal Vaccination/Date Given: No Travel Risk - International Travel Have you traveled outside of the country in past 3 weeks: No - Coronavirus Screening Are you exhibiting any of the following symptoms?: No Close contact with a COVID-19 positive Pt in past 14-21 Days: No - Vaccine Status Have you recieved a Covid-19 vaccination: Yes Transport Rn: Unknown - Vaccination Dates Date of 2cond Vaccination (if applicable): na Dates if Unknown: na - Review of Systems Constitutional: No Symptoms Eyes: No Symptoms Ears, Nose, & Throat: No Symptoms Respiratory: No Symptoms Cardiac: No Symptoms Abdominal/Gastrointestinal: No Symptoms Genitourinary Symptoms: No Symptoms Musculoskeletal: No Symptoms Skin: No Symptoms Neurological: No Symptoms Psychological: No Symptoms Endocrine: No Symptoms Hematologic/Lymphatic: No Symptoms Immunological/Allergic: No Symptoms All Other Systems: Reviewed and Negative - Past Medical History Pertinent Past Medical History: Yes Neurological History: No Pertinent History ENT History: No Pertinent History Cardiac History: High Cholesterol, Hypertension Respiratory History: No Pertinent History Endocrine Medical History: No Pertinent History Musculoskeletal History: No Pertinent History GI Medical History: No Pertinent History History: No Pertinent History Psycho-Social History: No Pertinent History Female Reproductive Disorders: No Pertinent History - Past Surgical History Past Surgical History: Yes Neuro Surgical History: No Pertinent History - Social History Smoking Status: Never smoker Exposure to second hand smoke: No Drug Use: none Patient Lives Alone: No - Nursing Vital Signs Nursing Vital Signs: Initial Vital Signs Temperature 97.2 F 12/25/22 14:04 Pulse Rate 85 12/25/22 14:04 Respiratory Rate 18 12/25/22 14:04 Blood Pressure 144/122 12/25/22 14:04 O2 Sat by Pulse Oximetry 94 L 12/25/22 14:04 Pain Scale Pain Intensity 0 - Physical Exam General Appearance: no apparent distress, alert, obese Eye Exam: PERRL/EOMI, eyes nml inspection Ears, Nose, Throat Exam: normal ENT inspection, moist mucous membranes Neck Exam: normal inspection, non-tender, supple, full range of motion Respiratory Exam: normal breath sounds, lungs clear, airway intact, No chest tenderness, No respiratory distress Cardiovascular Exam: regular rate/rhythm, normal heart sounds, normal peripheral pulses Gastrointestinal/Abdomen Exam: soft, normal bowel sounds, No tenderness Rectal Exam: not done Back Exam: normal inspection, normal range of motion, No CVA tenderness Extremity Exam: normal inspection, normal range of motion, pelvis stable Neurologic Exam: alert, oriented x 3, cooperative, reflexologist II-XII nml as tested, normal mood/affect, nml cerebellar function, nml station & gait, sensation nml Skin Exam: normal color, warm, dry Lymphatic Exam: No adenopathy SpO2 Interpretation: borderline oxygenation SpO2: 94 O2 Delivery: Room Air - Course Nursing assessment & vital signs reviewed: Yes Ordered Tests: Active Orders 24 hr Category Date Time Status EKG-ER Only STAT Care 12/25/22 14:04 Active IV Insertion STAT Care 12/25/22 14:04 Active Telemetry q4h Care 12/25/22 14:09 Active CBC W DIFF Stat Lab 12/25/22 14:41 Completed CMP Stat Lab 12/25/22 14:41 Completed MAG [MAGNESIUM] Stat Lab 12/25/22 14:41 Completed UA W/RFX UR CULTURE Stat Lab 12/25/22 14:04 Ordered Transfer Order Routine Transfer 12/25/22 Ordered Medication Summary Generic Name Dose Route Start Last Admin Trade Name Freq PRN Reason Stop Dose Admin Potassium Chloride 20 meq in 100 mls @ 50 mls/hr 12/25/22 14:09 12/25/22 14:38 Potassium Chloride 20 Meq In Water 100ml IV 12/25/22 16:08 50 mls/hr STAT ONE Administration Sodium Chloride 500 mls @ 75 mls/hr 12/25/22 14:45 12/25/22 14:38 Sodium Chloride 0.9% 500 Ml IV 01/24/23 14:44 75 mls/hr .[id number] CHRISS Administration Discontinued Medications Generic Name Dose Route Start Last Admin Trade Name Freq PRN Reason Stop Dose Admin Potassium Chloride Confirm 12/25/22 14:35 Potassium Chloride 20 Meq In Water 100ml Administered 12/25/22 14:36 Dose 100 mls @ ud IV .STK-MED ONE Lab/Rad Data: Laboratory Result Diagrams 12/25/22 14:41 12/25/22 14:41 Laboratory Results 12/25/22 12/25/22 12/25/22 Range/Units 14:41 14:41 14:41 WBC 7.4 (4.0-10.5) x10^3/uL RBC 4.33 (4.1-5.4) x10^6/uL Hgb 14.2 (12.0-16.0) g/dL Hct 42.5 (35-47) % MCV 98.2 (78-100) fL MCH 32.8 H (26-32) pg MCHC 33.4 (32-36) g/dL RDW 13.7 (11.5-14.0) % Plt Count 350 (150-450) x10^3/uL MPV 8.9 (7.5-11.0) fL Gran % 60.2 (36.0-66.0) % Immature Gran % (Auto) 0.1 (0.00-0.4) % Nucleat RBC Rel Count 0.0 (0.00-0.1) % Eos # (Auto) 0.25 (0-0.5) x10^3/uL Immature Gran # (Auto) 0.01 (0.00-0.03) x10^3u/L Absolute Lymphs (auto) 2.00 (1.0-4.6) x10^3/uL Absolute Monos (auto) 0.66 (0.0-1.3) x10^3/uL Absolute Nucleated RBC 0.00 (0.00-0.01) x10^3u/L Lymphocytes % 26.9 (24.0-44.0) % Monocytes % 8.9 (0.0-12.0) % Eosinophils % 3.4 (0.00-5.0) % Basophils % 0.5 (0.0-0.4) % Absolute Granulocytes 4.48 (1.4-6.9) x10^3/uL Basophils # 0.04 (0-0.4) x10^3/uL Sodium 136 L (137-145) mmol/L Potassium 2.3 L* (3.5-5.1) mmol/L Chloride 98 (98-107) mmol/L Carbon Dioxide 27 (22-30) mmol/L Anion Gap 14.0 (5-15) MEQ/L BUN 33 H (7-17) mg/dL Creatinine 2.48 H (0.52-1.04) mg/dL Estimated GFR 20.5 ML/MIN Glucose 125 H (74-106) mg/dL Calcium 9.2 (8.4-10.2) mg/dL Magnesium 2.0 (1.6-2.3) mg/dL Total Bilirubin 0.40 (0.2-1.3) mg/dL AST 30 (14-36) U/L ALT 22 (0-35) U/L Alkaline Phosphatase 81 (38-126) U/L Serum Total Protein 6.7 (6.3-8.2) g/dL Albumin 4.3 (3.5-5.0) g/dL - Progress Progress: improved, re-examined Progress Note: 12/25/22 15:51 This patient's medical issue is 1 of high complexity. Level complex in the work-up performed is based on review of the patient's past medical history, review of the patient's medication list, review the patient's drug allergy list, history present illness and physical findings on examination. This patient has been asymptomatic. However, she has significantly low potassium levels. Eyal dubon underwent placement of intravenous line and repeat the potassium magnesium levels. It is in fact low and therefore we will be placing this patient in observation and providing potassium protocol as well as magnesium protocol. Patient underwent a CBC, CMP levels. I spoke with Dr. Beasley, the telehospitalist on-call at this time. We will place the patient in observation and provide telemetry while we are infusing potassium and rechecking the potassium levels per protocol. Dr. Beasley is aware that the patient does have chronic renal disease and the GFR today is 20.5 12/25/22 16:02 I spoke with Cj the pharmacist today in the pharmacy. He is aware that I am aware and so is Dr. Beasley that this patient does have renal failure. It is chronic and not acute. Cj stated that as long as there is the awareness by the physicians, and serial labs are performed, which is included in the h ypokalemia/hypomagnesemia protocol, we can use the protocols. 12/25/22 16:04 Counseled pt/family regarding: lab results, diagnosis Medical Desision Making - Discussion of managment Care discussed with:: hospitalist Reviewed:: Test results, Need for additional workup Agreed on:: Treatment plan, place in obs Will see patient: in hospital - Diagnostic Testing Diagnostic test were ordered, analyzed, and reviewed by me: Yes - Risk of complications The pt has a high risk of morbidity or mortality based on: Decision regarding hospitilization or escalation of hosp level of care - Departure Departure Disposition: Observation Clinical Impression: Hypokalemia, Chronic renal failure Condition: Stable Critical Care Time: Yes Critical Care Time(excluding separately billable procedures): Critical 30-74 mins (40 minutes) Referrals: RODRÍGUEZ MERCHANT MD [Primary Care Provider] - Follow up/PCP as directed
[2022-12-25] MEDS ORDERED: POTASSIUM CHLORIDE 20 mEq IN WATER 100ML 100 ML IV ONE (14:35)
[2022-12-25] MEDS ORDERED: Sodium Chloride 0.9% 500 ML 500 ML IV SCH (14:45)
[2022-12-25 14:49] LABS: Absolute Neutrophil Ct (ANC) 4.48 x10^3/uL (1.4-6.9); BASOPHIL % 0.5 % (0.0-0.4); Basophil (Absolute #) 0.04 x10^3/uL (0-0.4); Eosinophil % 3.4 % (0.00-5.0); Eosinophil (Absolute #) 0.25 x10^3/uL (0-0.5); Hematocrit 42.5 % (35-47); Hemoglobin 14.2 g/dL (12.0-16.0); IMMATURE GRAN # 0.01 x10^3u/L (0.00-0.03); IMMATURE GRAN % 0.1 % (0.00-0.4); Lymphocytes % 26.9 % (24.0-44.0); Mean Cell Volume 98.2 fL (78-100); Mean Corpuscular Hemoglobin 32.8 pg (26-32); Mean Corpuscular Hgb Concent. 33.4 g/dL (32-36); Mean Platelet Volume 8.9 fL (7.5-11.0); Monocyte (Absolute #) 0.66 x10^3/uL (0.0-1.3); Monocytes % 8.9 % (0.0-12.0); Neutrophil % 60.2 % (36.0-66.0); Platelet Count 350 x10^3/uL (150-450); Red Blood Count 4.33 x10^6/uL (4.1-5.4); Red Cell Distribution Width 13.7 % (11.5-14.0); White Blood Count 7.4 x10^3/uL (4.0-10.5)
[2022-12-25 15:05] LABS: ALBUMIN 4.3 g/dL (3.5-5.0); BILIRUBIN,TOTAL 0.4 mg/dL (0.2-1.3); Calcium 9.2 mg/dL (8.4-10.2); Creatinine 1 2.48 mg/dL (0.52-1.04); EST GLOMERULAR FILTRATION RATE 20.5 ML/MIN; Total Protein 6.7 g/dL (6.3-8.2)
[2022-12-25 15:08] LABS: Potassium 2.3 mmol/L (3.5-5.1)
[2022-12-25] MEDS ORDERED: Sodium Chloride 0.9% 1000 ML 1,000 ML IV SCH (16:22)
[2022-12-25] MEDS ORDERED: TYLENOL 325 MG PO PRN (16:22)
[2022-12-25] MEDS ORDERED: Zofran 4 MG/2 ML VIAL IV PRN (16:22)
--- NOTE | 2022-12-25 16:34 | PCM.HP ---
History of Present Illness - Chief Complaint Date: 12/25/22 History of Present Illness: is a 67 year old female with a pmhx of HTN, GERD, HLD, Gout, obesity, and chronic renal failure who presented to ED on 12/25/22 under the advisement of her new car driver Dr. Marie due to abnormal labs indicating hypokalemia with a critical level of 2.5. Patient states she is in her normal state of health and denies CP, Sob, cough, dizziness, DEAN, weakness, paresthesias, or cramping. In ER, patient's vitals mostly unremarkable with the exception of hypertension with a BP of 166/140. EKG reviewed by the ER physician noted to be in NS with RBB, no evidence of ST elevations/deviations. Lab findings remarkable for Na at 136, potassium at 2.3, BUN 33, Creat 2.48, which is near baseline for patient. Patient received KCL in ER IV. PCP: Dr. Tamayo Nephrology: Frank Code Status: Full Code - Review of Systems Constitutional: No Symptoms Eyes: No Symptoms Ears, Nose, & Throat: No Symptoms Respiratory: No Symptoms Cardiac: No Symptoms Abdominal/Gastrointestinal: No Symptoms Genitourinary Symptoms: No Symptoms Musculoskeletal: No Symptoms Skin: No Symptoms Neurological: No Symptoms Psychological: No Symptoms Endocrine: No Symptoms Hematologic/Lymphatic: No Symptoms Immunological/Allergic: No Symptoms Medications & Allergies Home Medications: Home Medication List Alendronate Sodium 70 mg [Fosamax 70 MG] 70 mg PO Q7D@0600 12/25/22 [History Confirmed 12/25/22] Allopurinol 100 mg [Zyloprim 100 mg] 100 mg PO BID 12/25/22 [History Confirmed 12/25/22] Amiloride HCl 5 mg PO DAILY 12/25/22 [History Confirmed 12/25/22] Aspirin EC 81 mg [Ecotrin 81 mg] 81 mg PO DAILY 12/25/22 [History Confirmed 12/25/22] Atorvastatin Calcium 40 mg PO HS 12/25/22 [History Confirmed 12/25/22] Calcium Carbonate [Calcium] 500 mg PO DAILY 12/25/22 [History Confirmed 12/25/22] Cilostazol 100 mg [Pletal 100 MG] 100 mg PO BID 12/25/22 [History Confirmed 12/25/22] [place]-3 Fatty Acids/Fish Oil [Fish Oil 1,000 mg Capsule] 1,000 mg PO DAILY 12/25/22 [History Confirmed 12/25/22] Omeprazole 40 mg PO DAILY 12/25/22 [History Confirmed 12/25/22] Potassium Chloride 20 meq PO DAILY 12/25/22 [History Confirmed 12/25/22] Allergies/Adverse Reactions: Allergies Allergy/AdvReac Type Severity Reaction Status Date / Time No Known Drug Allergies Allergy Unverified 06/15/22 13:26 - Past Medical History Past Medical History: Yes Neurological History: No Pertinent History ENT History: No Pertinent History Cardiac History: High Cholesterol, Hypertension Respiratory History: No Pertinent History Endocrine Medical History: No Pertinent History Musculoskelatal History: No Pertinent History GI Medical History: No Pertinent History History: No Pertinent History Pyscho-Social History: No Pertinent History Reproductive Disorders: No Pertinent History - Past Surgical History Past Surgical History: Yes Neuro Surgical History: No Pertinent History - Social History Smoking Status: Never smoker Exposure to second hand smoke: No Alcohol: None Drug Use: none - Physical Exam Vital Signs: Vital Signs - 24 hr Temp Pulse Resp BP BP Pulse Ox 12/25/22 16:04 94 L 12/25/22 16:00 79 17 128/89 93 L 12/25/22 15:50 76 17 125/86 12/25/22 15:41 76 18 144/90 12/25/22 15:30 76 16 166/140 12/25/22 15:20 84 13 137/97 96 12/25/22 15:10 91 H 14 141/94 12/25/22 15:00 83 14 139/93 97 12/25/22 14:50 79 13 139/95 12/25/22 14:40 81 16 130/84 93 L 12/25/22 14:34 78 19 117/86 93 L 12/25/22 14:30 84 20 119/86 92 L 12/25/22 14:04 97.2 F 85 18 144/122 94 L General Appearance: no apparent distress Neurologic Exam: alert, oriented x 3, cooperative Eye Exam: PERRL/EOMI Respiratory Exam: normal breath sounds, lungs clear Cardiovascular Exam: regular rate/rhythm, murmur Gastrointestinal/Abdomen Exam: soft, normal bowel sounds Pelvic Exam: not done Rectal Exam: not done Extremity Exam: normal inspection Skin Exam: pale Results - Labs Lab/Micro Results: Lab Results-Last 24 Hours 12/25/22 12/25/22 12/25/22 Range/Units 14:41 14:41 14:41 WBC 7.4 (4.0-10.5) x10^3/uL RBC 4.33 (4.1-5.4) x10^6/uL Hgb 14.2 (12.0-16.0) g/dL Hct 42.5 (35-47) % MCV 98.2 (78-100) fL MCH 32.8 H (26-32) pg MCHC 33.4 (32-36) g/dL RDW 13.7 (11.5-14.0) % Plt Count 350 (150-450) x10^3/uL MPV 8.9 (7.5-11.0) fL Gran % 60.2 (36.0-66.0) % Immature Gran % (Auto) 0.1 (0.00-0.4) % Nucleat RBC Rel Count 0.0 (0.00-0.1) % Eos # (Auto) 0.25 (0-0.5) x10^3/uL Immature Gran # (Auto) 0.01 (0.00-0.03) x10^3u/L Absolute Lymphs (auto) 2.00 (1.0-4.6) x10^3/uL Absolute Monos (auto) 0.66 (0.0-1.3) x10^3/uL Absolute Nucleated RBC 0.00 (0.00-0.01) x10^3u/L Lymphocytes % 26.9 (24.0-44.0) % Monocytes % 8.9 (0.0-12.0) % Eosinophils % 3.4 (0.00-5.0) % Basophils % 0.5 (0.0-0.4) % Absolute Granulocytes 4.48 (1.4-6.9) x10^3/uL Basophils # 0.04 (0-0.4) x10^3/uL Sodium 136 L (137-145) mmol/L Potassium 2.3 L* (3.5-5.1) mmol/L Chloride 98 (98-107) mmol/L Carbon Dioxide 27 (22-30) mmol/L Anion Gap 14.0 (5-15) MEQ/L BUN 33 H (7-17) mg/dL Creatinine 2.48 H (0.52-1.04) mg/dL Estimated GFR 20.5 ML/MIN Glucose 125 H (74-106) mg/dL Calcium 9.2 (8.4-10.2) mg/dL Magnesium 2.0 (1.6-2.3) mg/dL Total Bilirubin 0.40 (0.2-1.3) mg/dL AST 30 (14-36) U/L ALT 22 (0-35) U/L Alkaline Phosphatase 81 (38-126) U/L Serum Total Protein 6.7 (6.3-8.2) g/dL Albumin 4.3 (3.5-5.0) g/dL Assessment/Plan (1) Hypokalemia Current Visit: Yes Status: Acute Assessment & Plan: -Continuous TELE -Potassium replacement per protocol -Potassium levels Q4h -Monitor renal/lytes closely Code(s): E87.6 - HYPOKALEMIA (2) Hypertension Current Visit: Yes Status: Chronic Assessment & Plan: -Stable, hypertensive on presentation, will continue home meds, continue to monitor -hydralazine prn for sbp >180 Code(s): I10 - ESSENTIAL (PRIMARY) HYPERTENSION (3) Hyperlipidemia Current Visit: Yes Status: Chronic Assessment & Plan: -Continue home med atorvastatin Code(s): E78.5 - HYPERLIPIDEMIA, UNSPECIFIED (4) Chronic renal failure Current Visit: Yes Status: Chronic Assessment & Plan: -Creat near baseline, will continue to monitor renal/lytes daily -Avoid nephrotoxic agents including NSAID/HARSHIL/ARBS VTE: Lovenox Dispo: Home 1-2 days Surrogate decision maker: none provided
[2022-12-25] MEDS ORDERED: DUONEB 0.5-3 MG/3 ml Neb IH PRN (16:40)
[2022-12-25] MEDS ORDERED: APRESOLINE 20 MG/ML INJ IV PRN (17:34)
[2022-12-25 19:23] LABS: Appearance Clear (Clear); Bacteria Few /HPF (None Seen); Bilirubin Negative (Negative); Blood Negative (Negative); Epithelial Cells Few /HPF (None Seen); Glucose, Urine Negative (Negative); Ketones Negative (Negative); Leukocyte Esterase Negative (Negative); Nitrite Negative (Negative); Protein,Urine Dip 30 (Negative); RBC 0-2 /HPF (0-5); WBC 0-2 /HPF (0-5)
[2022-12-25 19:27] LABS: ADD URINE CULTURE? NO (NO)
[2022-12-25] MEDS: POTASSIUM CHLORIDE 20 mEq IN WATER 100ML 20 MEQ/100 ML BAG IV SCH ×2 (21:45→23:46)
[2022-12-25] MEDS: ZYLOPRIM 100 MG PO SCH (21:47)
[2022-12-25] MEDS: Pletal 100 MG PO SCH (21:47)
[2022-12-25] MEDS ORDERED: ZOCOR 20MG PO SCH (22:00)
[2022-12-25] MEDS ORDERED: LIPITOR 40MG PO SCH (22:00)
[2022-12-26 04:43] LABS: Absolute Neutrophil Ct (ANC) 2.51 x10^3/uL (1.4-6.9); BASOPHIL % 0.9 % (0.0-0.4); Basophil (Absolute #) 0.05 x10^3/uL (0-0.4); Eosinophil % 4.9 % (0.00-5.0); Eosinophil (Absolute #) 0.28 x10^3/uL (0-0.5); Hematocrit 40.6 % (35-47); Hemoglobin 13.3 g/dL (12.0-16.0); IMMATURE GRAN # 0.01 x10^3u/L (0.00-0.03); IMMATURE GRAN % 0.2 % (0.00-0.4); Lymphocyte (Absolute #) 2.28 x10^3/uL (1.0-4.6); Lymphocytes % 39.9 % (24.0-44.0); Mean Cell Volume 99.8 fL (78-100); Mean Corpuscular Hemoglobin 32.7 pg (26-32); Mean Corpuscular Hgb Concent. 32.8 g/dL (32-36); Mean Platelet Volume 9.6 fL (7.5-11.0); Monocyte (Absolute #) 0.58 x10^3/uL (0.0-1.3); Monocytes % 10.2 % (0.0-12.0); Neutrophil % 43.9 % (36.0-66.0); Platelet Count 274 x10^3/uL (150-450); Red Blood Count 4.07 x10^6/uL (4.1-5.4); Red Cell Distribution Width 13.5 % (11.5-14.0); White Blood Count 5.7 x10^3/uL (4.0-10.5)
[2022-12-26 05:05] LABS: ALBUMIN 3.4 g/dL (3.5-5.0); BILIRUBIN,TOTAL 0.4 mg/dL (0.2-1.3); Calcium 8.7 mg/dL (8.4-10.2); Creatinine 1 1.86 mg/dL (0.52-1.04); EST GLOMERULAR FILTRATION RATE 28.6 ML/MIN; MAGNESIUM 2.2 mg/dL (1.6-2.3); Potassium 3.1 mmol/L (3.5-5.1); Total Protein 5.7 g/dL (6.3-8.2)
[2022-12-26 06:35] VITALS: RESP 16
[2022-12-26] MEDS: Pletal 100 MG PO SCH (09:22)
[2022-12-26] MEDS: ZYLOPRIM 100 MG PO SCH (09:22)
[2022-12-26] MEDS ORDERED: Klor Con PO ONE (09:37)
[2022-12-26] MEDS ORDERED: FISH OIL 1,000 MG CAPSULE PO SCH (10:00)
[2022-12-26] MEDS ORDERED: AMILORIDE HCL PO SCH (10:00)
[2022-12-26] MEDS ORDERED: NON-FORMULARY ITEM (Calcium Carbonate [Calcium] 500 MG Tablet) PO SCH (10:00)
[2022-12-26] MEDS ORDERED: Calcium 500MG W/Vit D Tablet PO SCH (10:00)
[2022-12-26] MEDS ORDERED: ENOXAPARIN SODIUM SQ SCH (10:00)
[2022-12-26] MEDS ORDERED: Protonix 40MG Tablet PO SCH (10:00)
[2022-12-26] MEDS ORDERED: NON-FORMULARY ITEM (Omeprazole [Omeprazole] 40 MG Capsule.Dr) PO SCH (10:00)
[2022-12-26] MEDS ORDERED: ECOTRIN 81 MG PO SCH (10:00)
[2022-12-26 10:57] VITALS: BP 120/72; PULSE 78; TEMP 96.8; O2SAT 93
--- NOTE | 2022-12-26 11:59 | PCM.DS ---
Discharge Summary Date of Admission: 12/25/22 16:13 Date of Discharge: 12/26/22 Admitting Physician: MANE FRANCO MD Primary Care Provider: RODRÍGUEZ MERCHANT Allergies Allergies No Known Drug Allergies Allergy (Unverified 06/15/22 13:26) Hospital Summary - Hospital Course Hospital Course: is a 67 year old female with a pmhx of HTN, GERD, HLD, Gout, obesity, and chronic renal failure who presented to ED on 12/25/22 under the advisement of her storekeeper helper Dr. Marie due to abnormal labs indicating hypokalemia with a critical level of 2.5. Patient stated she was in her normal state of health and denies CP, Sob, cough, dizziness, DEAN, weakness, paresthesias, or cramping. In ER, patient's vitals mostly unremarkable with the exception of hypertension with a BP of 166/140. EKG reviewed by the ER physician noted to be in NS with RBB, no evidence of ST elevations/deviations. Lab findings remarkable for Na at 136, potassium at 2.3, BUN 33, Creat 2.48, which is near baseline for patient. Patient received KCL in ER IV. Profound hypokalemia in the setting of CKD: No GI source of K loss. No obvious K wasting medications noted. Has nephrology follow up and there may need to be consideration of renal K wasting. Potassium has been replenished, levels improved. Advised [facility] Friday with close follow up with PCP and nephrology. -New Diagnoses: Hypokalemia -New Medications: Potassium chloride -Medications Discontinued: none -Follow up: PCP/Neph -Results pending: none -Outpatient testing to order: [facility] Friday -Latest Assessment and Plan: (1) Hypokalemia Current Visit: Yes Status: Acute Assessment & Plan: -Continuous TELE -Potassium replacement per protocol -Potassium levels Q4h -Monitor renal/lytes closely Code(s): E87.6 - HYPOKALEMIA (2) Hypertension Current Visit: Yes Status: Chronic Assessment & Plan: -Stable, hypertensive on presentation, will continue home meds, continue to monitor -hydralazine prn for sbp >180 Code(s): I10 - ESSENTIAL (PRIMARY) HYPERTENSION (3) Hyperlipidemia Current Visit: Yes Status: Chronic Assessment & Plan: -Continue home med atorvastatin Code(s): E78.5 - HYPERLIPIDEMIA, UNSPECIFIED (4) Chronic renal failure Current Visit: Yes Status: Chronic Assessment & Plan: -Creat near baseline, will continue to monitor renal/lytes daily -Avoid nephrotoxic agents including NSAID/HARSHIL/ARBS I spent 45 minutes [id number] with the patient on the day of discharge p erforming discharge exam, discussing hospital stay and discharge instructions with patient & caregivers, preparation of discharge records, prescriptions & referral forms and addressing any questions/concerns the patient had as documented above. - Vitals & Intake/Output Vital Signs: Vital Signs Temperature 96.8 F 12/26/22 10:56 Pulse Rate 78 12/26/22 10:56 Respiratory Rate 16 12/26/22 10:56 Blood Pressure 120/72 12/26/22 10:56 O2 Sat by Pulse Oximetry 93 L 12/26/22 10:56 Intake & Output: Intake & Output 12/23/22 12/24/22 12/25/22 12/26/22 11:59 11:59 11:59 11:59 Intake Total 2294 Output Total 150 Balance 2144 Weight 92 kg - Lab Result Diagrams: 12/26/22 04:31 12/26/22 04:31 Lab Results-Last 24 Hrs: Lab Results-Last 24 Hours 12/25/22 12/25/22 12/25/22 Range/Units 14:41 14:41 14:41 WBC 7.4 (4.0-10.5) x10^3/uL RBC 4.33 (4.1-5.4) x10^6/uL Hgb 14.2 (12.0-16.0) g/dL Hct 42.5 (35-47) % MCV 98.2 (78-100) fL MCH 32.8 H (26-32) pg MCHC 33.4 (32-36) g/dL RDW 13.7 (11.5-14.0) % Plt Count 350 (150-450) x10^3/uL MPV 8.9 (7.5-11.0) fL Gran % 60.2 (36.0-66.0) % Immature Gran % (Auto) 0.1 (0.00-0.4) % Nucleat RBC Rel Count 0.0 (0.00-0.1) % Eos # (Auto) 0.25 (0-0.5) x10^3/uL Immature Gran # (Auto) 0.01 (0.00-0.03) x10^3u/L Absolute Lymphs (auto) 2.00 (1.0-4.6) x10^3/uL Absolute Monos (auto) 0.66 (0.0-1.3) x10^3/uL Absolute Nucleated RBC 0.00 (0.00-0.01) x10^3u/L Lymphocytes % 26.9 (24.0-44.0) % Monocytes % 8.9 (0.0-12.0) % Eosinophils % 3.4 (0.00-5.0) % Basophils % 0.5 (0.0-0.4) % Absolute Granulocytes 4.48 (1.4-6.9) x10^3/uL Basophils # 0.04 (0-0.4) x10^3/uL Sodium 136 L (137-145) mmol/L Potassium 2.3 L* (3.5-5.1) mmol/L Chloride 98 (98-107) mmol/L Carbon Dioxide 27 (22-30) mmol/L Anion Gap 14.0 (5-15) MEQ/L BUN 33 H (7-17) mg/dL Creatinine 2.48 H (0.52-1.04) mg/dL Estimated GFR 20.5 ML/MIN Glucose 125 H (74-106) mg/dL Calcium 9.2 (8.4-10.2) mg/dL Magnesium 2.0 (1.6-2.3) mg/dL Total Bilirubin 0.40 (0.2-1.3) mg/dL AST 30 (14-36) U/L ALT 22 (0-35) U/L Alkaline Phosphatase 81 (38-126) U/L NT-Pro-B Natriuret Pep (<300) pg/mL Serum Total Protein 6.7 (6.3-8.2) g/dL Albumin 4.3 (3.5-5.0) g/dL Urine Color (Yellow) Urine Appearance (Clear) Urine pH (4.6-8.0) Ur Specific [place] (1.005-1.030) Urine Protein (Negative) Urine Glucose (UA) (Negative) mg/dL Urine Ketones (Negative) Urine Blood (Negative) Urine Nitrite (Negative) Urine Bilirubin (Negative) Urine Urobilinogen (0.2) mg/dL Ur Leukocyte Esterase (Negative) U Hyaline Cast (Auto) (0-2) /LPF Urine Microscopic RBC (0-5) /HPF Urine Microscopic WBC (0-5) /HPF Ur Epithelial Cells (None Seen) /HPF Urine Bacteria (None Seen) /HPF Urine Culture Reflexed (NO) 12/25/22 12/25/22 12/25/22 Range/Units 17:25 18:04 19:12 WBC (4.0-10.5) x10^3/uL RBC (4.1-5.4) x10^6/uL Hgb (12.0-16.0) g/dL Hct (35-47) % MCV (78-100) fL MCH (26-32) pg MCHC (32-36) g/dL RDW (11.5-14.0) % Plt Count (150-450) x10^3/uL MPV (7.5-11.0) fL Gran % (36.0-66.0) % Immature Gran % (Auto) (0.00-0.4) % Nucleat RBC Rel Count (0.00-0.1) % Eos # (Auto) (0-0.5) x10^3/uL Immature Gran # (Auto) (0.00-0.03) x10^3u/L Absolute Lymphs (auto) (1.0-4.6) x10^3/uL Absolute Monos (auto) (0.0-1.3) x10^3/uL Absolute Nucleated RBC (0.00-0.01) x10^3u/L Lymphocytes % (24.0-44.0) % Monocytes % (0.0-12.0) % Eosinophils % (0.00-5.0) % Basophils % (0.0-0.4) % Absolute Granulocytes (1.4-6.9) x10^3/uL Basophils # (0-0.4) x10^3/uL Sodium (137-145) mmol/L Potassium 2.8 L* D (3.5-5.1) mmol/L Chloride (98-107) mmol/L Carbon Dioxide (22-30) mmol/L Anion Gap (5-15) MEQ/L BUN (7-17) mg/dL Creatinine (0.52-1.04) mg/dL Estimated GFR ML/MIN Glucose (74-106) mg/dL Calcium (8.4-10.2) mg/dL Magnesium 2.3 (1.6-2.3) mg/dL Total Bilirubin (0.2-1.3) mg/dL AST (14-36) U/L ALT (0-35) U/L Alkaline Phosphatase (38-126) U/L NT-Pro-B Natriuret Pep (<300) pg/mL Serum Total Protein (6.3-8.2) g/dL Albumin (3.5-5.0) g/dL Urine Color Yellow (Yellow) Urine Appearance Clear (Clear) Urine pH 6.0 (4.6-8.0) Ur Specific [place] 1.020 (1.005-1.030) Urine Protein 30 (Negative) Urine Glucose (UA) Negative (Negative) mg/dL Urine Ketones Negative (Negative) Urine Blood Negative (Negative) Urine Nitrite Negative (Negative) Urine Bilirubin Negative (Negative) Urine Urobilinogen 1.0 A (0.2) mg/dL Ur Leukocyte Esterase Negative (Negative) U Hyaline Cast (Auto) 3-5 A (0-2) /LPF Urine Microscopic RBC 0-2 (0-5) /HPF Urine Microscopic WBC 0-2 (0-5) /HPF Ur Epithelial Cells Few (None Seen) /HPF Urine Bacteria Few A (None Seen) /HPF Urine Culture Reflexed NO (NO) 12/25/22 12/26/22 12/26/22 Range/Units 21:06 04:31 04:31 WBC 5.7 (4.0-10.5) x10^3/uL RBC 4.07 L (4.1-5.4) x10^6/uL Hgb 13.3 (12.0-16.0) g/dL Hct 40.6 (35-47) % MCV 99.8 (78-100) fL MCH 32.7 H (26-32) pg MCHC 32.8 (32-36) g/dL RDW 13.5 (11.5-14.0) % Plt Count 274 (150-450) x10^3/uL MPV 9.6 (7.5-11.0) fL Gran % 43.9 (36.0-66.0) % Immature Gran % (Auto) 0.2 (0.00-0.4) % Nucleat RBC Rel Count 0.0 (0.00-0.1) % Eos # (Auto) 0.28 (0-0.5) x10^3/uL Immature Gran # (Auto) 0.01 (0.00-0.03) x10^3u/L Absolute Lymphs (auto) 2.28 (1.0-4.6) x10^3/uL Absolute Monos (auto) 0.58 (0.0-1.3) x10^3/uL Absolute Nucleated RBC 0.00 (0.00-0.01) x10^3u/L Lymphocytes % 39.9 (24.0-44.0) % Monocytes % 10.2 (0.0-12.0) % Eosinophils % 4.9 (0.00-5.0) % Basophils % 0.9 (0.0-0.4) % Absolute Granulocytes 2.51 (1.4-6.9) x10^3/uL Basophils # 0.05 (0-0.4) x10^3/uL Sodium 136 L (137-145) mmol/L Potassium 2.8 L* 3.1 L (3.5-5.1) mmol/L Chloride 105 (98-107) mmol/L Carbon Dioxide 22 (22-30) mmol/L Anion Gap 11.0 (5-15) MEQ/L BUN 29 H (7-17) mg/dL Creatinine 1.86 H (0.52-1.04) mg/dL Estimated GFR 28.6 ML/MIN Glucose 92 (74-106) mg/dL Calcium 8.7 (8.4-10.2) mg/dL Magnesium 2.2 (1.6-2.3) mg/dL Total Bilirubin 0.40 (0.2-1.3) mg/dL AST 25 (14-36) U/L ALT 18 (0-35) U/L Alkaline Phosphatase 72 (38-126) U/L NT-Pro-B Natriuret Pep 466 (<300) pg/mL Serum Total Protein 5.7 L (6.3-8.2) g/dL Albumin 3.4 L (3.5-5.0) g/dL Urine Color (Yellow) Urine Appearance (Clear) Urine pH (4.6-8.0) Ur Specific [place] (1.005-1.030) Urine Protein (Negative) Urine Glucose (UA) (Negative) mg/dL Urine Ketones (Negative) Urine Blood (Negative) Urine Nitrite (Negative) Urine Bilirubin (Negative) Urine Urobilinogen (0.2) mg/dL Ur Leukocyte Esterase (Negative) U Hyaline Cast (Auto) (0-2) /LPF Urine Microscopic RBC (0-5) /HPF Urine Microscopic WBC (0-5) /HPF Ur Epithelial Cells (None Seen) /HPF Urine Bacteria (None Seen) /HPF Urine Culture Reflexed (NO) - Procedures and Test Procedures and Tests throughout Hospitalization: Therapy Orders & Screens 12/25/22 16:45 Respiratory Therapy Assessment DAILY Comment: Diagnosis: Hypokalemia Discharge Exam General Appearance: no apparent distress Neurologic Exam: alert, oriented x 3, cooperative Eye Exam: PERRL Ears, Nose, Throat Exam: normal ENT inspection Neck Exam: normal inspection Respiratory Exam: normal breath sounds, lungs clear Cardiovascular Exam: regular rate/rhythm, normal heart sounds Gastrointestinal/Abdomen Exam: soft, normal bowel sounds Pelvic Exam: deferred Rectal Exam: deferred Back Exam: normal inspection Extremity Exam: normal inspection Skin Exam: normal color Final Diagnosis/Problem List - Final Discharge Diagnosis/Problem (1) Hypokalemia Current Visit: Yes Status: Acute Code(s): E87.6 - HYPOKALEMIA (2) Hypertension Current Visit: Yes Status: Chronic Code(s): I10 - ESSENTIAL (PRIMARY) HYPERTENSION (3) Hyperlipidemia Current Visit: Yes Status: Chronic Code(s): E78.5 - HYPERLIPIDEMIA, UNSPECIFIED (4) Chronic renal failure Current Visit: Yes Status: Chronic - Discharge Condition: Good Prescriptions: New RX: Potassium Chloride Tab* [Klor Con] 40 meq PO DAILY 2 Days #8 tablet Continue RX: Aspirin EC 81 mg [Ecotrin 81 mg] 81 mg PO DAILY RX: Calcium Carbonate [Calcium] 500 mg PO DAILY RX: [place]-3 Fatty Acids/Fish Oil [Fish Oil 1,000 mg Capsule] 1,000 mg PO DAILY RX: Allopurinol 100 mg [Zyloprim 100 mg] 100 mg PO BID RX: Potassium Chloride 20 meq PO DAILY RX: Omeprazole 40 mg PO DAILY RX: Cilostazol 100 mg [Pletal 100 MG] 100 mg PO BID RX: Amiloride HCl 5 mg PO DAILY RX: Alendronate Sodium 70 mg [Fosamax 70 MG] 70 mg PO Q7D@0600 RX: Atorvastatin Calcium 40 mg PO HS Outpatient Orders: BMP Time Frame: 4 Days, Facility: [facility], Location: LABORATORY Additional Instructions: Follow up with PCP with in 5 days with labs prior. Follow up with Dr. Luna within one week Follow up with: RODRÍGUEZ MERCHANT MD [Primary Care Provider] - ROSE LUNA [CONSULTING PHYSICIAN] -
[2022-12-31] MEDS ORDERED: Fosamax 70 MG PO SCH (06:00)
== END 2022-12-26 14:00 | disposition home or self-care (01) ==
LOC: ED 13:58 → MED SURG 16:13
PROVIDERS: ADMIT Internal Medicine; ATTEND Internal Medicine
DX: E87.6 Hypokalemia (principal); I12.9 Hypertensive chronic kidney disease with stage 1 through stage 4 chronic kidney disease, or unspecified chronic kidney disease; N18.9 Chronic kidney disease, unspecified; E78.5 Hyperlipidemia, unspecified; K21.9 Gastro-esophageal reflux disease without esophagitis; E66.9 Obesity, unspecified; Z79.899 Other long term (current) drug therapy; Z20.828 Contact with and (suspected) exposure to other viral communicable diseases
CPT/HCPCS: 36000; 36415; 80053; 81001; 83735; 83880; 84132; 85025; 93005; 94760; 96365; 96366; 99284; 99291; Q3014; 93268; J1650; J3480; A9270-GY; G0378